=== PATIENT | female | born 1930 | race Caucasian/White ===

== ENCOUNTER → 2017-10-11 | Day surgery (SDC) | payer MEDICARE ==
[~2017-10-11] VITALS: Ht 152.4 cm; Wt 67.0 kg
[~2017-10-11] MED LIST: ACETAMINOPHEN 1000 MG/100 ML 0 ML IV ONE; BUPIVACAINE/EPINEPHRINE 0.5% PF 10 ML VIAL ONE; CHLORHEXIDINE GLUCONATE 4% SOLN 120 ML BTL TOPICAL SCH; COUM2.5T PO; COUM5TAB PO; CYAN1000P IM; GENTAMICIN SULFATE 80 MG/2 ML VIAL ONE; HYDR200T3 PO; LACTATED RINGER'S 1000 ML IV PRN; METOPROLOL TARTRATE 25 MG TAB PO PRN; SODIUM CHLORID 0.9% 500 ML IV PRN; VANCOMYCIN 1 GM/200 ML PREMIX ON-CALL IV SCH; VANCOMYCIN 1000 MG/NS 250 ML (for <70 kg) IV SCH; ceFAZolin 2 GM PREMIX 50 ML IV SCH
[2017-10-11 06:20] VITALS: BP 147/61; PULSE 77; RESP 18; TEMP 97.7; O2SAT 100
[2017-10-11 07:04] LABS: INTERNATIONAL NORMALIZED RATIO 2.6 RATIO
--- NOTE | 2017-10-11 15:58 | EKG ---
Date Performed: 10/11/2017 Time Performed: 06:20:13 PTAGE: 86 years EKG: Sinus rhythm WITH FIRST DEGREE AV BLOCK LEFT BUNDLE BRANCH BLOCK ABNORMAL ECG Since the PREVIOUS TRACING , no significant change noted PREVIOUS TRACIN10/14/2011 11.01 DOCTOR: Mir Richter Interpretating Date/Time 10/11/2017 15:56:07
== END | disposition home or self-care (01) ==
LOC: HSDC 05:42
PROVIDERS: ATTEND Orthopaedic Surgery Orthopaedic Trauma
DX: S72.142S Displaced intertrochanteric fracture of left femur, sequela (principal); M70.72 Other bursitis of hip, left hip; M16.12 Unilateral primary osteoarthritis, left hip; M79.7 Fibromyalgia; I80.9 Phlebitis and thrombophlebitis of unspecified site; M32.9 Systemic lupus erythematosus, unspecified; R79.1 Abnormal coagulation profile; Z01.818 Encounter for other preprocedural examination; Z01.810 Encounter for preprocedural cardiovascular examination
CPT/HCPCS: 85610; 93005; G0463; J1580; J7120; 99211; J0131